=== PATIENT | male | born 1970 | race Caucasian/White ===

== ENCOUNTER 2020-09-07 19:27 | Emergency (ER) | payer OTHER ==
[2020-09-07] MEDS ORDERED: Lidocaine 1% PF 5 ML VIAL ONE ×2 (20:54→21:11)
[2020-09-07] MEDS ORDERED: Ketorolac Tromethamine 30 MG/ML VIAL ONE (20:54)
--- NOTE | 2020-09-07 21:00 | CT ---
CT HEAD WITHOUT CONTRAST 09/07/20 INDICATIONS: Head injury. Ventricles have normal size and position. There is no evidence of intracranial hemorrhag e. No edema, mass, infarct or other acute process. Scalp injury is seen over the frontal bone. No sera dence of skull fracture. IMPRESSION: No acute findings. POS: [facility]
--- NOTE | 2020-09-07 21:04 | CT ---
CT CERVICAL SPINE: 09/07/20 INDICATIONS: Trauma. Injury to neck. FINDINGS: The cervical vertebrae maintain normal height and alignment. There are degenerative changes noted. Th ere is loss of disc space at all levels with mild anterior osteophytes and mild posterior spondylosis which appears most pronounced at C4-5 and C5-6 and C6-7 levels. There is no evidence of cervical spine fracture. There is spondylosis producing compression on the co rd at C4-5 and C5-6. There is foraminal stenosis at C4-5 and C5-6 due to uncinate hypertrophy. Forami nal stenosis on the left at C3-4 due to uncinate hypertrophy. IMPRESSION: No evidence of cervical spine fracture. Degenerative changes as described. POS: [facility]
[2020-09-07] MEDS ORDERED: Boostrix 0.5 ML VIAL ONE (21:37)
[2020-09-07] MEDS ORDERED: Acetaminophen 500 MG TAB ONE (22:13)
== END 2020-09-07 23:11 | disposition home or self-care (01) ==
LOC: ERS 19:27
DX: S01.01XA Laceration without foreign body of scalp, initial encounter (principal); W17.89XA Other fall from one level to another, initial encounter
CPT/HCPCS: 12004; 70450; 72125; 90471; 90715; 96374; G0390; J1885